=== PATIENT | female | born 2000 | race Caucasian/White ===

== ENCOUNTER 2023-11-15 11:52 | Emergency (ER) | payer MEDICAID, OTHER ==
[2023-11-15 12:37] LABS: BASOPHILS # (AUTO) 0.1 10^3/uL (0.0-0.1); BASOPHILS % (AUTO) 0.4 %; EOSINOPHILS # (AUTO) 0.1 10^3/uL (0.0-0.7); EOSINOPHILS % (AUTO) 0.8 %; HCT - HEMATOCRIT 41.5 % (37.0-47.0); HGB - HEMOGLOBIN 13.9 g/dL (12.0-16.0); LYMPHOCYTES # (AUTO) 1.9 10^3/uL (1.5-3.5); LYMPHOCYTES % (AUTO) 16.5 %; MEAN CORPUSCULAR HEMOGLOBIN 30.8 pg (27.0-31.0); MEAN CORPUSCULAR HGB CONC 33.5 g/dL (32.0-36.0); MEAN CORPUSCULAR VOLUME 91.8 fL (81.0-99.0); MEAN PLATELET VOLUME 10.2 fL (7.9-10.8); MONOCYTES # (AUTO) 0.5 10^3/uL (0.0-1.0); NEUTROPHILS # (AUTO) 8.9 10^3/uL (1.5-6.6); NEUTROPHILS % (AUTO) 78.1 %; PLT - PLATELET COUNT 270 10^3/uL (130-450); RED BLOOD COUNT 4.52 10^6/uL (4.20-5.40); WHITE BLOOD COUNT 11.5 x10^3/uL (4.8-10.8)
--- NOTE | 2023-11-15 12:55 | ED Physician Documentation ---
History of Present Illness - Stated complaint Stated Complaint: BACK, RT SIDE PX - Chief complaint Chief Complaint: Abd Pain - Additonal information Additional information: 23-year-old female with no pertinent past medical history has IUD in place recently just got off her menses presents emergency department for sudden onset right flank pain. No history of kidney infections or kidney stones patient says it is now radiating down to her right abdomen area with persistent nausea vomiting. No fevers or chills. Patient says that she has had a UTI in the past and this feels nothing like it. PD PAST MEDICAL HISTORY - Past Medical History Past Medical History: Yes Cardiovascular: None Respiratory: None Neuro: None Endocrine/Autoimmune: None GI: None HELP DESK OPERATOR: None : None HEENT: None Psych: Post traumatic stress disorder Musculoskeletal: None Derm: None - Past Surgical History Past Surgical History: No - Present Medications Home Medications: Ambulatory Orders Medication Instructions Recorded Confirmed Ondansetron Odt [Zofran Odt] 4 mg TL Q6H PRN #10 tablet 11/15/23 Tamsulosin HCl [Flomax] 0.4 mg PO DAILY #15 cap 11/15/23 oxyCODONE [Roxicodone] 5 mg PO Q4-6H #12 tablet 11/15/23 - Allergies Allergies/Adverse Reactions: Allergies Allergy/AdvReac Type Severity Reaction Status Date / Time No Known Drug Allergies Allergy Verified 11/15/23 12:01 - Social History Does the pt smoke?: No Smoking Status: Never smoker Does the pt drink ETOH?: Yes Does the pt have substance abuse?: No - Immunizations Immunizations are current?: Yes PD ED PE NORMAL - Vitals Vital signs reviewed: Yes - General General: Alert and oriented X 3, Well developed/nourished, Other (ill appearing) - Cardiac Cardiac: RRR - Respiratory Respiratory: No respiratory distress, Clear bilaterally - Abdomen Abdomen: Normal bowel sounds, Soft, Non distended, Other (RLQ tenderness) - Back Back: Other (right CVA tenderness) - Derm Derm: Normal color, Warm and dry, No rash Results - Vitals Vitals: Vital Signs - 24 hr 11/15/23 11/15/23 11/15/23 12:02 14:09 16:00 Temperature 36.5 C 36.5 C 36.8 C Heart Rate 65 66 62 Respiratory 16 16 16 Rate Blood Pressure 133/76 H 122/72 96/60 O2 Saturation 98 98 98 11/15/23 16:46 Temperature Heart Rate 94 Respiratory 16 Rate Blood Pressure 102/64 O2 Saturation 100 Oxygen O2 Source Room air - Labs Labs: Laboratory Tests 11/15/23 11/15/23 11/15/23 12:15 12:31 12:31 WBC 11.5 H RBC 4.52 Hgb 13.9 Hct 41.5 MCV 91.8 MCH 30.8 MCHC 33.5 RDW 12.0 Plt Count 270 MPV 10.2 Neut # (Auto) 8.9 H Lymph # (Auto) 1.9 [place] # (Auto) 0.5 Eos # (Auto) 0.1 Baso # (Auto) 0.1 Absolute Nucleated RBC 0.00 Nucleated RBC % 0.0 Sodium 140 Potassium 4.1 Chloride 107 Carbon Dioxide 26 Anion Gap 7.0 BUN 12 Creatinine 0.9 Estimated GFR (MDRD) 76 L Glucose 109 H Calcium 9.9 Total Bilirubin 0.4 AST 14 ALT 15 Alkaline Phosphatase 62 Total Protein 6.8 Albumin 4.3 Globulin 2.5 Albumin/Globulin Ratio 1.7 Lipase 11 Urine Color BROWN Urine Clarity CLOUDY Urine pH 5.5 Ur Specific [place] >=1.030 H Urine Protein >=300 H Urine Glucose (UA) NEGATIVE Urine Ketones TRACE Urine Occult Blood LARGE H Urine Nitrite POSITIVE H Urine Bilirubin MODERATE H Urine Urobilinogen 1 (NORMAL) Ur Leukocyte Esterase TRACE H Urine RBC TNTC H Urine WBC 4-5 Ur Squamous Epith Cells MOD Squamous H Amorphous Sediment Few Urine Bacteria Many H Ur Microscopic Review INDICATED Urine Culture Comments NOT INDICATED Urine HCG, Qual NEGATIVE - Rads (name of study) CT KUB Relevant Findings:: Final report received, EMP independent interpretation of test, Other (Mild right hydronephrosis and hydroureter secondary to 2 mm proximal ureter calcification) PD Medical Decision Making - ED course ED course: 23-year-old female presents emergency department for right flank pain differentials include but are not limited to atypical appendicitis, renal calculi, pyelonephritis. Labs are complete for further evaluation and reveals very mild leukocytosis, 11.5, fairly unremarkable CMP urinalysis is positive for blood nitrites and trace leukocytes but also a moderate amount of squamous cells. I do not believe that patient warrants any need for antibiotics she denies any dysuria or urinary urgency she says she has had multiple UTIs this is not for like a UTI. I did go ahead and send urine for cultures for further evaluation but holding off on starting her on antibiotics at this point in time until urine cultures result. CT KUB was complete and revealed mild right hydronephrosis and hydroureter secondary to a 2 mm proximal ureteral calcification. She was started on Flomax and sent home with pain medication and antinausea medication. I am prescribing a short course of short-acting opioid pain medication for this patient. 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 I have discussed that the opioids are for short term therapy only, and will not be refilled from the ED. All questions have been answered to the patient she understands return precautions she is strongly encouraged to follow-up with primary care provider who she does not have and was strongly encouraged to establish care with primary care provider soon as possible. Departure - Departure Disposition: Home, Self Care Clinical Impression: Renal calculi Instructions: Kidney Stones Prescriptions: Tamsulosin HCl [Flomax] 0.4 mg PO DAILY #15 cap oxyCODONE [Roxicodone] 5 mg PO Q4-6H #12 tablet Ondansetron Odt [Zofran Odt] 4 mg TL Q6H PRN #10 tablet PRN Reason: Nausea / Vomiting Comments: Thank you for trusting us with your care. It appears that you do have a small kidney stone on your right ureter. It is now 2 mm and it should pass on its own. We have started you on a medication called Flomax here in the emergency department and I am prescribing Flomax as well as some oxycodone and Zofran to help with pain and nausea. I would strongly encourage you to establish care with a primary care provider soon as possible to follow-up with urology as needed. Wishing a speedy recovery come back to the ER if you are having any worsening symptoms. INDICATIONS: right flank pain TECHNIQUE: A CT scan of the abdomen and pelvis was performed without the use of intravenous contrast. Images were recorded and evaluated at appropriate window settings. Reformats: coronal and sagittal. For radiation dose reduction, the following was used: automated exposure control, adjustment of mA and/or kV according to patient size. COMPARISON: None. FINDINGS: Image quality: Diagnostic. Lower chest: Unremarkable. Liver: No contour-deforming mass. Liver measures 19.3 cm. Gallbladder: Unremarkable. Biliary tree: No intrahepatic or extrahepatic dilation, accounting for age. Spleen: No splenomegaly. Pancreas: No pancreatic ductal dilation. Adrenals: No adrenal nodule. Kidneys and ureters: Mild right hydronephrosis. 2 mm calcification is present in the proximal ureter. Stomach, bowel and peritoneum: No gastric or small bowel dilation. No abnormal wall thickening. Minimal dependent pelvic fluid. Lymph nodes: No central or retroperitoneal adenopathy. Vessels: No infrarenal aortic aneurysm. Reproductive organs: IUD is present. Bladder: Bladder wall thickness is normal, accounting for underdistention. No calcified bladder stones. Pelvic lymph nodes: No adenopathy by size criteria. Bones: No aggressive osseous abnormality. Other: No significant ventral or inguinal hernia. IMPRESSION: Mild right hydronephrosis and hydroureter secondary to 2 mm proximal ureteral calcification. Reviewed by: Edith Borja MD on 11/15/2023 4:08 PM PDT Forms: PCP List Discharge Date/Time: 11/15/23 16:51
[2023-11-15 12:59] LABS: BILIRUBIN,URINE MODERATE (NEGATIVE); GLUCOSE, URINE (UA) NEGATIVE (NEGATIVE); KETONES,URINE (UA) TRACE mg/dL (NEGATIVE); LEUKOCYTE ESTERASE, URINE TRACE (NEGATIVE); NITRITE,URINE POSITIVE (NEGATIVE); OCCULT BLOOD,URINE LARGE (NEGATIVE); PH,URINE 5.5 PH (5.0-7.5); PROTEIN,URINE >=300 mg/dL (NEGATIVE); UROBILINOGEN,URINE 1 (NORMAL) E.U./dL (NORMAL)
[2023-11-15 13:00] LABS: ALBUMIN 4.3 g/dL (3.2-5.5); ALBUMIN/GLOBULIN RATIO 1.7 (1.0-2.2); BILIRUBIN,TOTAL 0.4 mg/dL (0.2-1.0); CALCIUM 9.9 mg/dL (8.5-10.3); CREATININE 0.9 mg/dL (0.6-1.3); POTASSIUM 4.1 mmol/L (3.5-4.5); TOTAL PROTEIN 6.8 g/dL (6.4-8.9)
[2023-11-15 13:01] LABS: HCG UR QUAL NEGATIVE
[2023-11-15 13:11] LABS: CLARITY,URINE CLOUDY (CLEAR)
[2023-11-15 13:13] LABS: AMORPHOUS SEDIMENT,UR Few /LPF; BACTERIA,URINE Many /HPF (None Seen); RBC,URINE TNTC /HPF (0-5); SQUAMOUS EPITHELIAL CELL,UR MOD Squamous (<= Few)
[2023-11-15] MEDS: KETOROLAC 30 MG/ML VIAL IVP STA (13:20)
[2023-11-15] MEDS: ONDANSETRON 4 MG/2 ML VIAL IVP STA (13:20)
[2023-11-15] MEDS: SODIUM CHLORIDE 0.9% 1,000 ML IV ONE (13:24)
[2023-11-15] MEDS: HYDROmorphone 0.5 MG/0.5 ML SYRINGE IVP STA (13:50)
[2023-11-15] MEDS: PROCHLORPERAZINE 10 MG/2 ML VIAL IVP STA (13:50)
--- NOTE | 2023-11-15 16:10 | CT Report ---
PROCEDURE: KUB INDICATIONS: right flank pain TECHNIQUE: A CT scan of the abdomen and pelvis was performed without the use of intravenous contrast. Images we re recorded and evaluated at appropriate window settings. Reformats: coronal and sagittal. For radiat ion dose reduction, the following was used: automated exposure control, adjustment of mA and/or kV ac cording to patient size. COMPARISON: None. FINDINGS: Image quality: Diagnostic. Lower chest: Unremarkable. Liver: No contour-deforming mass. Liver measures 19.3 cm. Gallbladder: Unremarkable. Biliary tree: No intrahepatic or extrahepatic dilation, accounting for age. Spleen: No splenomegaly. Pancreas: No pancreatic ductal dilation. Adrenals: No adrenal nodule. Kidneys and ureters: Mild right hydronephrosis. 2 mm calcification is present in the proximal ureter. Stomach, bowel and peritoneum: No gastric or small bowel dilation. No abnormal wall thickening. Minim al dependent pelvic fluid. Lymph nodes: No central or retroperitoneal adenopathy. Vessels: No infrarenal aortic aneurysm. Reproductive organs: IUD is present. Bladder: Bladder wall thickness is normal, accounting for underdistention. No calcified bladder stone s. Pelvic lymph nodes: No adenopathy by size criteria. Bones: No aggressive osseous abnormality. Other: No significant ventral or inguinal hernia. IMPRESSION: Mild right hydronephrosis and hydroureter secondary to 2 mm proximal ureteral calcification. Reviewed by: Edith Borja MD on 11/15/2023 4:08 PM PDT Approved by: Edith Borja MD on 11/15/2023 4:08 PM PDT Station ID: [id number]
[2023-11-15] MEDS: TAMSULOSIN 0.4 MG CAPSULE PO STA (16:42)
[2023-11-15 16:51] VITALS: BP 102/64; O2SAT 100
== END 2023-11-15 16:51 | disposition home or self-care (01) ==
LOC: ED 11:52
DX: N13.2 Hydronephrosis with renal and ureteral calculous obstruction (principal); D72.829 Elevated white blood cell count, unspecified; Z97.5 Presence of (intrauterine) contraceptive device
CPT/HCPCS: 36415; 74176; 80053; 81001; 81025; 83690; 85025; 87086; 96361; 96374; 96375; 99284; 99285; A9270; J1170; 81003